=== PATIENT | male | born 1975 | race African-American/Black ===

== ENCOUNTER 2022-11-24 12:34 | Emergency (ER) | payer OTHER ==
[2022-11-24] MEDS ORDERED: LORTAB5 PO (14:16)
[2022-11-24] MEDS ORDERED: CIPROFLOXACN500 MG PO (14:16)
[2022-11-24] MEDS ORDERED: FLOXIN OTIC0.3 % AS (14:16)
[2022-11-24 14:27] VITALS: BP 118/72
== END 2022-11-24 14:35 | disposition home or self-care (01) | DRG 156 ==
LOC: ED 12:34
DX: H60.92 Unspecified otitis externa, left ear (principal)

== ENCOUNTER 2022-12-04 02:20 | Emergency (ER) | payer OTHER ==
[~2022-12-04 02:20] MED LIST: CIPROFLOXACN500 MG PO; FLOXIN OTIC0.3 % AS; LORTAB5 PO
[2022-12-05] MEDS ORDERED: TRAMADOL HYDROC50 M1 PO (20:42)
== END 2022-12-04 03:12 | disposition left against medical advice (07) | DRG 951 ==
LOC: ED 02:20 → LWOBS 03:12
DX: Z53.21 Procedure and treatment not carried out due to patient leaving prior to being seen by health care provider (principal)

== ENCOUNTER 2022-12-05 18:05 | Emergency (ER) | payer OTHER ==
[2022-12-05] VITALS (12 sets, daily range): BP systolic 90–128; BP diastolic 44–69
[~2022-12-05] VITALS: Ht 182.9 cm; Wt 104.3 kg
[2022-12-05 20:00] LABS: BASO% 0.3 % (0-3); EOS% 2.7 % (0-8); HEMATOCRIT 32.4 % (39.0-50.0); IMMATURE GRANULOCYTES 0.1 % (0.0-5.0); LYMPH% 38.4 % (15-41); MEAN CELL VOLUME 80.6 fL CALC (80.0-100.0); MEAN CORPUSCULAR HGB 24.9 pG CALC (26.0-32.0); MEAN CORPUSCULAR HGB CONC 30.9 g/dL CAL (32.0-36.0); MONO% 7.4 % (2-13); NEUT# 3.94 thou/uL (1.82-7.42); NEUT% 51.1 % (42-76); RED BLOOD COUNT 4.02 mill/uL (4.70-6.10); RED CELL DISTRI WIDTH 13.3 % (11.5-15.5)
[2022-12-05 20:10] LABS: ALBUMIN 4.3 g/dL (3.2-5.0); ALKALINE PHOSPHATASE 65 u/l (38-126); ANION GAP 8 (6-22 (CALC)); BILIRUBIN, TOTAL 0.4 mg/dL (0.2-1.3); BUN 15 mg/dL (9-20); BUN/CREATININE RATIO 13 (12-20 (CALC)); CARBON DIOXIDE 31 mmol/l (22-30); CHLORIDE 105 mmol/l (95-108); CREATININE 1.1 mg/dL (0.7-1.3); GFR FOR AFR.AMER. > 60 ML/MIN (>=60 (CALC)); GFR OTHER RACES > 60 ML/MIN (>=60 (CALC)); LIPASE 84 u/l (23-300); POTASSIUM 3.4 mmol/l (3.5-5.1); SGOT/AST 34 u/l (17-59); SODIUM 141 mmol/l (137-146); TOTAL PROTEIN 7.6 g/dL (6.3-8.2)
[2022-12-05] MEDS ORDERED: TRAMADOL HYDROC50 M1 PO (20:42)
== END 2022-12-05 20:50 | disposition left against medical advice (07) | DRG 605 ==
LOC: ED 18:05
PROVIDERS: Nurse Practitioner
DX: S80.811A Abrasion, right lower leg, initial encounter (principal); X58.XXXA Exposure to other specified factors, initial encounter

== ENCOUNTER 2022-12-09 00:14 | Emergency (ER) | payer OTHER ==
[~2022-12-09] VITALS: Ht 182.9 cm; Wt 95.2 kg
[~2022-12-09 00:14] MED LIST changes: +TRAMADOL HYDROC50 M1 PO
[2022-12-09 00:32] VITALS: BP 119/61
[2022-12-09 00:43] VITALS: BP 119/61
[2022-12-09 00:46] VITALS: BP 111/76
== END 2022-12-09 00:56 | disposition home or self-care (01) | DRG 605 ==
LOC: ED 00:14
DX: S80.11XA Contusion of right lower leg, initial encounter (principal); S80.811A Abrasion, right lower leg, initial encounter; W18.30XA Fall on same level, unspecified, initial encounter

== ENCOUNTER 2023-04-24 17:19 | Emergency (ER) | payer OTHER ==
[~2023-04-24] VITALS: Ht 180.3 cm; Wt 94.8 kg
[2023-04-24 17:33] VITALS: BP 104/57
[2023-04-24 17:46] VITALS: BP 106/61
[2023-04-24 17:59] LABS: BASO% 0.5 % (0-3); EOS% 2.2 % (0-8); HEMOGLOBIN 10.2 g/dl (14.0-18.0); IMMATURE GRANULOCYTES 0.1 % (0.0-5.0); MEAN CELL VOLUME 81.5 fL CALC (80.0-100.0); MEAN CORPUSCULAR HGB 25.2 pG CALC (26.0-32.0); MEAN CORPUSCULAR HGB CONC 30.9 g/dL CAL (32.0-36.0); MONO% 7.9 % (2-13); NEUT# 3.44 thou/uL (1.82-7.42); NEUT% 46.3 % (42-76); RED BLOOD COUNT 4.05 mill/uL (4.70-6.10); RED CELL DISTRI WIDTH 13.6 % (11.5-15.5)
[2023-04-24 18:00] VITALS: BP 107/59
[2023-04-24 18:16] VITALS: BP 108/67
[2023-04-24 18:17] LABS: ALBUMIN 4.1 g/dL (3.2-5.0); ALKALINE PHOSPHATASE 51 u/l (38-126); ANION GAP 11 (6-22 (CALC)); BUN 13 mg/dL (9-20); BUN/CREATININE RATIO 12 (12-20 (CALC)); CARBON DIOXIDE 25 mmol/l (22-30); CHLORIDE 110 mmol/l (95-108); CREATININE 1.1 mg/dL (0.7-1.3); GFR FOR AFR.AMER. > 60 ML/MIN (>=60 (CALC)); GFR OTHER RACES > 60 ML/MIN (>=60 (CALC)); POTASSIUM 3.8 mmol/l (3.5-5.1); SGOT/AST 29 u/l (17-59); SODIUM 142 mmol/l (137-146); TOTAL PROTEIN 7.2 g/dL (6.3-8.2)
[2023-04-24 18:19] LABS: BILIRUBIN, TOTAL 0.6 mg/dL (0.2-1.3)
[2023-04-24 18:45] VITALS: BP 98/40
[2023-04-24 19:41] LABS: URINE BILIRUBIN - DIPSTICK NEGATIVE (NEGATIVE); URINE BLOOD DIPSTICK NEGATIVE (NEGATIVE); URINE COLOR YELLOW; URINE GLUCOSE - DIPSTICK NEGATIVE (NEGATIVE); URINE KETONE NEGATIVE (NEGATIVE); URINE LEUK ESTERASE NEGATIVE (NEGATIVE); URINE PH 6.5 (4.5-8.0); URINE PROTEIN - DIPSTICK TRACE mg/dL (NEG-TRACE); URINE SPECIFIC GRAVITY >=1.030; URINE UROBILINOGEN - DIPSTICK >=8.0 E.U./dL (0.2)
[2023-04-24 19:42] LABS: URINE NITRITE - DIPSTICK NEGATIVE (Negative)
[2023-04-24] MEDS ORDERED: TAMSULOSIN0.4 MG PO (19:43)
[2023-04-24] MEDS ORDERED: ULTRAM50 MG PO (19:43)
[2023-04-24 22:00] VITALS: BP 105/48
== END 2023-04-24 20:00 | disposition home or self-care (01) | DRG 552 ==
LOC: ED 17:19
PROVIDERS: Family Medicine
DX: M54.9 Dorsalgia, unspecified (principal)